=== PATIENT | male | born 1955 | race Caucasian/White ===

== ENCOUNTER 2021-04-27 14:28 | Inpatient (IN) | payer OTHER, MEDICARE ==
[~2021-04-27] VITALS: Ht 190.5 cm; Wt 97.7 kg
[~2021-04-27 14:28] MED LIST: LANTUS SQ; METF500T PO; SYN0.025T PO; VARE0.5T PO
[2021-04-27 15:05] LABS: EOSINOPHILS # (AUTO) 0.2 X10'3 (0-0.9); HEMOGLOBIN 17.3 g/dl (14.0-17.9); MONOCYTES # (AUTO) 0.7 X10'3 (0-0.9)
[2021-04-27 15:07] LABS: BASOPHILS # (AUTO) 0.1 X10'3 (0-0.2); BASOPHILS % (AUTO) 1.4 % (0-1); EOSINOPHILS % (AUTO) 2.4 % (0-6); HEMATOCRIT 49.1 % (42.0-52.0); LYMPHOCYTES % (AUTO) 24.9 % (21-51); MEAN CORPUSCULAR HEMOGLOBIN 32.1 PG (27.0-31.0); MEAN CORPUSCULAR HGB CONC 35.2 g/dL (33.0-36.5); MEAN CORPUSCULAR VOLUME 91.2 FL (78-98); MEAN PLATELET VOLUME 8.6 FL (7.4-10.4); MONOCYTES % (AUTO) 8.2 % (2-12); NEUTROPHILS # (AUTO) 5.1 X10'3 (1.8-7.7); NEUTROPHILS % (AUTO) 63.1 % (42-75); PLATELET COUNT 235 X10'3 (140-440); RED BLOOD COUNT 5.39 X10'6 (4.70-6.10); RED CELL DISTRIBUTION WIDTH 12.8 % (11.5-14.5); WHITE BLOOD COUNT 8.1 X10'3 (4.5-11.0)
[2021-04-27 15:19] LABS: ALANINE AMINOTRANSFERASE 52 U/L (12-78); ALBUMIN 3.9 G/DL (3.4-5.0); ALBUMIN/GLOBULIN RATIO 0.9 (1.1-1.5); ALKALINE PHOSPHATASE 84 IU/L (46-116); ANION GAP 8 (8-16); ASPARTATE AMINO TRANSFERASE 104 U/L (10-37); BILIRUBIN,TOTAL 0.5 MG/DL (0.1-1.0); BLOOD UREA NITROGEN 10 MG/DL (7-18); BUN/CREATININE RATIO 8.8 (5.4-32.0); CALCIUM 8.7 MG/DL (8.5-10.1); CHLORIDE 102 MMOL/L (99-107); CREATININE 1.14 MG/DL (0.60-1.10); GLUCOSE 230 MG/DL (70-104); POTASSIUM 4.4 MMOL/L (3.5-5.1); SODIUM 138 MMOL/L (135-145); TOTAL CARBON DIOXIDE 27.9 MMOL/L (24-32); TOTAL PROTEIN 8.4 G/DL (6.4-8.2); eGFR 64 ML/MIN
--- NOTE | 2021-04-27 15:59 | NUR ---
Dr. Treviño at bedside.patient denies pain at this time.
[2021-04-27] MEDS ORDERED: aspirin 81mg tab.chew PO ONE (16:15)
[2021-04-27] MEDS ORDERED: heparin 10,000 units/1 ML INJ IV ONE ×2 (16:15→16:20)
[2021-04-27] MEDS: heparin 25,000 UNIT/250ml bag 250 ML IV SCH (17:19)
[2021-04-27] MEDS ORDERED: magnesium 2GM in 50ml NS 50 ML IV PRN (17:20)
[2021-04-27] MEDS ORDERED: magnesium hydroxide 30ml (MOM) UD suspension PO PRN (17:20)
[2021-04-27] MEDS ORDERED: magnesium Cl slow-release 64mg tablet PO PRN (17:20)
[2021-04-27] MEDS ORDERED: mag hydrox/Alum hydrox/simeth 30ml oral suspension PO PRN (17:20)
[2021-04-27] MEDS ORDERED: MESSAGE TO PHARMACY PO ONE (17:20)
[2021-04-27] MEDS ORDERED: dextrose ORAL solution 15 GM/59 ML bottle PO PRN ×2 (17:20)
[2021-04-27] MEDS ORDERED: insulin Lispro (HumaLOG) vial - multi-dose SQ SCH (17:20)
[2021-04-27] MEDS ORDERED: morphine 2 MG/ML inj. syringe IV PRN ×2 (17:20)
[2021-04-27] MEDS ORDERED: nitroGLYCERIN 0.4mg SUBLingual tab SL PRN (17:20)
[2021-04-27] MEDS ORDERED: HYDROcodone/acetaminophen 10/325mg tab PO PRN (17:20)
[2021-04-27] MEDS ORDERED: glucagon, human recombinant 1mg kit SUBCUT PRN (17:20)
[2021-04-27] MEDS ORDERED: magnesium 4gm in 100ml NS 100 ML IV PRN (17:20)
[2021-04-27] MEDS ORDERED: potassium Cl 40MEQ/1/2NS 520ml 520 ML IV PRN ×2 (17:20)
[2021-04-27] MEDS ORDERED: HYDROcodone/acetaminophen 5mg/325mg tablet PO PRN (17:20)
[2021-04-27] MEDS ORDERED: bisacodyl 10mg suppository rectal RC PRN (17:20)
[2021-04-27] MEDS ORDERED: diphenhydrAMINE 25mg capsule PO PRN (17:20)
[2021-04-27] MEDS ORDERED: dextrose 50%-water 50ml dispensing syringe IV PRN ×2 (17:20)
[2021-04-27] MEDS ORDERED: potassium Cl 20 mEq SR tablet PO PRN ×2 (17:20)
[2021-04-27] MEDS ORDERED: acetaminophen 650mg rectal suppository RC PRN (17:20)
[2021-04-27] MEDS ORDERED: atorvastatin 20mg tablet PO SCH (17:20)
[2021-04-27] MEDS ORDERED: normal saline 1000ml 1,000 ML IV SCH (17:20)
[2021-04-27] MEDS ORDERED: acetaminophen 325mg tablet PO PRN ×2 (17:20)
[2021-04-27] MEDS ORDERED: ondansetron/PF 4mg/2ml inj IV PRN (17:20)
[2021-04-27 17:27] LABS: PARTIAL THROMBOPLASTIN TIME 26 SECONDS (22-32)
[2021-04-27] MEDS ORDERED: NERVE PILL (17:39)
[2021-04-27] MEDS ORDERED: HEART PILL (17:39)
[2021-04-27] MEDS ORDERED: INSU100V9 SQ (17:39)
[2021-04-27] MEDS ORDERED: LEVOTHYROXINE (17:39)
[2021-04-27] MEDS ORDERED: CHOLESTEROL (17:39)
[2021-04-27 17:48] LABS: HEMOGLOBIN A1C 8.4 % (4.5-6.2)
--- NOTE | 2021-04-27 18:30 | NUR ---
DR. ONEILL AT BEDSIDE,PATIENT TO HAVE HEART CATH TOMORROW.NPO AFTER MIDNIGHT.
[2021-04-27] MEDS ORDERED: ROSU40TA PO (19:19)
[2021-04-27] MEDS ORDERED: CARV3.12 PO (19:19)
[2021-04-27] MEDS ORDERED: ALOG25TA2 PO (19:19)
[2021-04-27] MEDS ORDERED: EMPA25TA PO (19:19)
[2021-04-27] MEDS ORDERED: LEVO100T PO (19:19)
[2021-04-27] MEDS ORDERED: GLIM1TAB PO (19:19)
[2021-04-27] MEDS ORDERED: docusate sod 100mg capsule PO SCH (20:00)
[2021-04-27] MEDS ORDERED: K and/or MAG REPLACEMENT MC SCH (20:00)
[2021-04-27] MEDS ORDERED: carVEDilol 3.125mg tablet PO SCH (20:00)
--- NOTE | 2021-04-27 20:39 | NUR ---
Patient in room PCU 3010. I have received report from KELLIE ANDERSEN and had the opportunity to ask questions and assume patient care.
[2021-04-27 20:42] VITALS: BP 115/74
[2021-04-27] MEDS ORDERED: insulin glargine (Lantus) pen - multi-dose SQ SCH (21:00)
[2021-04-27 22:00] VITALS: BP 115/73
[2021-04-28] MEDS: heparin 10,000 units/1 ML INJ IV PRN ×2 (00:30→00:40)
[2021-04-28] MEDS: heparin 25,000 UNIT/250ml bag 250 ML IV SCH (00:41)
[2021-04-28 02:00] VITALS: BP 114/70
[2021-04-28 03:20] LABS: ALANINE AMINOTRANSFERASE 45 U/L (12-78); ALBUMIN 3.5 G/DL (3.4-5.0); ALBUMIN/GLOBULIN RATIO 0.9 (1.1-1.5); ALKALINE PHOSPHATASE 74 IU/L (46-116); ANION GAP 9 (8-16); ASPARTATE AMINO TRANSFERASE 67 U/L (10-37); BILIRUBIN,TOTAL 0.6 MG/DL (0.1-1.0); BLOOD UREA NITROGEN 11 MG/DL (7-18); BUN/CREATININE RATIO 11.1 (5.4-32.0); CALCIUM 8.3 MG/DL (8.5-10.1); CHLORIDE 106 MMOL/L (99-107); CREATININE 0.99 MG/DL (0.60-1.10); GLUCOSE 196 MG/DL (70-104); POTASSIUM 3.9 MMOL/L (3.5-5.1); SODIUM 139 MMOL/L (135-145); TOTAL CARBON DIOXIDE 23.9 MMOL/L (24-32); TOTAL PROTEIN 7.6 G/DL (6.4-8.2); eGFR 75 ML/MIN
[2021-04-28 03:22] LABS: CHOL/HDL RATIO 5.1 (0.00-4.99); CHOLESTEROL 193 MG/DL (0-200); HDL CHOLESTEROL 38 MG/DL (35-60); LDL CHOLESTEROL 108 MG/DL (50-100); MAGNESIUM 2.2 MG/DL (1.5-2.4); PHOSPHORUS 2.8 MG/DL (2.3-4.5); TRIGLYCERIDES 145 MG/DL (20-135)
[2021-04-28 03:23] LABS: BASOPHILS # (AUTO) 0.1 X10'3 (0-0.2); BASOPHILS % (AUTO) 1.1 % (0-1); EOSINOPHILS # (AUTO) 0.3 X10'3 (0-0.9); EOSINOPHILS % (AUTO) 4.2 % (0-6); HEMATOCRIT 47.2 % (42.0-52.0); HEMOGLOBIN 16.5 g/dl (14.0-17.9); LYMPHOCYTES # (AUTO) 3.1 X10'3 (1.1-4.8); LYMPHOCYTES % (AUTO) 40.2 % (21-51); MEAN CORPUSCULAR HEMOGLOBIN 31.7 PG (27.0-31.0); MEAN CORPUSCULAR HGB CONC 34.9 g/dL (33.0-36.5); MEAN PLATELET VOLUME 9.2 FL (7.4-10.4); MONOCYTES # (AUTO) 0.7 X10'3 (0-0.9); MONOCYTES % (AUTO) 8.8 % (2-12); NEUTROPHILS # (AUTO) 3.5 X10'3 (1.8-7.7); NEUTROPHILS % (AUTO) 45.7 % (42-75); PLATELET COUNT 188 X10'3 (140-440); RED BLOOD COUNT 5.18 X10'6 (4.70-6.10); RED CELL DISTRIBUTION WIDTH 12.8 % (11.5-14.5); WHITE BLOOD COUNT 7.7 X10'3 (4.5-11.0)
--- NOTE | 2021-04-28 06:32 | NUR ---
Problems reprioritized. Patient report given, questions answered & plan of care reviewed with PAT RN.
[2021-04-28 07:08] VITALS: BP 103/56
[2021-04-28] MEDS ORDERED: levoTHYROXINE 100mcg tablet PO SCH (08:00)
[2021-04-28] MEDS ORDERED: carVEDilol 3.125mg tablet PO SCH (08:00)
[2021-04-28] MEDS ORDERED: lisinopril 10 MG tablet PO SCH (08:00)
[2021-04-28] MEDS ORDERED: aspirin 81mg, enteric-coated 1 TAB TABLET.DR PO SCH (08:00)
[2021-04-28] MEDS ORDERED: midazolam 1 mg/ML 2ml injection ONE (09:40)
[2021-04-28] MEDS ORDERED: fentaNYL/PF 50MCG/1 ML 2ML syringe ONE (09:40)
[2021-04-28] MEDS ORDERED: LIDOcaine 1% (10mg/ml)w/preservative injection 20ml MDV ONE (09:40)
[2021-04-28] MEDS ORDERED: iohexol 350 MG/ML 50ML vial IV ONE ×2 (09:40→10:52)
[2021-04-28] MEDS ORDERED: iohexol 350MG/ML 100ml bottle IV ONE (09:42)
--- NOTE | 2021-04-28 10:31 | NUR ---
Noted pt with T2DM, current A1c 8.4%. Pt admit for NSTEMI, currently in labor and delivery registered nurse per EMR. Pt would benefit from DM education once stable. Will continue to follow. Addendum: 04/28/21 at [address] Amended: Links added.
[2021-04-28] MEDS ORDERED: proCHLORperazine 10 MG/2 ml inj IV PRN (12:40)
[2021-04-28] MEDS ORDERED: HYDROcodone/acetaminophen 5mg/325mg tablet PO PRN (12:40)
[2021-04-28] MEDS ORDERED: HYDROcodone/acetaminophen 10/325mg tab PO PRN (12:40)
[2021-04-28] MEDS ORDERED: OXAZEpam 15mg capsule PO PRN (12:40)
[2021-04-28] MEDS ORDERED: normal saline 1000ml 1,000 ML IV ONE (12:40)
[2021-04-28] MEDS ORDERED: LISI10TA27 PO (13:01)
[2021-04-28] MEDS ORDERED: ASPI-1071 PO (13:01)
[2021-04-28] MEDS ORDERED: CLOP75TA15 PO (13:01)
[2021-04-29] MEDS ORDERED: clopidogrel 75mg tablet PO SCH (08:00)
== END 2021-04-28 18:30 | disposition home or self-care (01) | DRG 282 ==
LOC: ER 14:29 → ED HOLD 17:24 → MERGE 17:24 → EDBEDREQ 19:01 → PCU 3S 20:34
PROVIDERS: ADMIT Family Medicine; ATTEND Family Medicine
PROC: 4A023N7 Measurement of Cardiac Sampling and Pressure, Left Heart, Percutaneous Approach (ICD-10-PCS; principal; 2021-04-28)
PROC: B2111ZZ Fluoroscopy of Multiple Coronary Arteries using Low Osmolar Contrast (ICD-10-PCS; 2021-04-28)
PROC: B2151ZZ Fluoroscopy of Left Heart using Low Osmolar Contrast (ICD-10-PCS; 2021-04-28)
PROC: B31N1ZZ Fluoroscopy of Other Upper Arteries using Low Osmolar Contrast (ICD-10-PCS; 2021-04-28)
DX: I21.4 Non-ST elevation (NSTEMI) myocardial infarction (principal); E03.9 Hypothyroidism, unspecified; E11.9 Type 2 diabetes mellitus without complications; E78.5 Hyperlipidemia, unspecified; F17.210 Nicotine dependence, cigarettes, uncomplicated; Z60.2 Problems related to living alone; E78.00 Pure hypercholesterolemia, unspecified; M54.9 Dorsalgia, unspecified; F41.9 Anxiety disorder, unspecified; I10 Essential (primary) hypertension; Z79.02 Long term (current) use of antithrombotics/antiplatelets; Z79.4 Long term (current) use of insulin; Z79.899 Other long term (current) drug therapy; Z79.84 Long term (current) use of oral hypoglycemic drugs; Z90.49 Acquired absence of other specified parts of digestive tract; Z71.6 Tobacco abuse counseling
CPT/HCPCS: 36415; 71045; 80053; 80061; 82948; 83036; 83735; 84100; 84484; 85025; 85347; 85610; 85730; 87081; 93005; 93306; 93459; 96374; 99152; 99153; 99285; A4620; A6258; C1760; C1769; G0378; J1644; J1815; J2001; J2250; J3010; J7030; Q9967

== ENCOUNTER 2021-05-04 10:00 | Inpatient (IN) | payer OTHER, MEDICARE ==
[2021-05-04] VITALS (7 sets, daily range): BP systolic 105–122; BP diastolic 60–71
[~2021-05-04] VITALS: Ht 190.5 cm; Wt 97.7 kg
[~2021-05-04 10:00] MED LIST changes: +ALOG25TA2 PO; +ASPI-1071 PO; +CARV3.12 PO; +CHOLESTEROL; +CLOP75TA15 PO; +EMPA25TA PO; +GLIM1TAB PO; +HEART PILL; +INSU100V9 SQ; +LEVO100T PO; +LEVOTHYROXINE; +LISI10TA27 PO; +NERVE PILL; +ROSU40TA PO
[2021-05-04 10:57] LABS: BASOPHILS # (AUTO) 0.1 X10'3 (0-0.2); BASOPHILS % (AUTO) 1.9 % (0-1); EOSINOPHILS # (AUTO) 0.3 X10'3 (0-0.9); EOSINOPHILS % (AUTO) 4.5 % (0-6); HEMOGLOBIN 16.5 g/dl (14.0-17.9); LYMPHOCYTES # (AUTO) 1.5 X10'3 (1.1-4.8); LYMPHOCYTES % (AUTO) 24.4 % (21-51); MEAN CORPUSCULAR HEMOGLOBIN 31.9 PG (27.0-31.0); MEAN CORPUSCULAR HGB CONC 35.1 g/dL (33.0-36.5); MEAN CORPUSCULAR VOLUME 90.8 FL (78-98); MEAN PLATELET VOLUME 8.4 FL (7.4-10.4); MONOCYTES # (AUTO) 0.6 X10'3 (0-0.9); MONOCYTES % (AUTO) 9.9 % (2-12); NEUTROPHILS # (AUTO) 3.5 X10'3 (1.8-7.7); NEUTROPHILS % (AUTO) 59.3 % (42-75); PLATELET COUNT 254 X10'3 (140-440); RED BLOOD COUNT 5.18 X10'6 (4.70-6.10); RED CELL DISTRIBUTION WIDTH 12.8 % (11.5-14.5)
[2021-05-04 11:12] LABS: ALANINE AMINOTRANSFERASE 39 U/L (12-78); ALBUMIN/GLOBULIN RATIO 0.9 (1.1-1.5); ALKALINE PHOSPHATASE 79 IU/L (46-116); ANION GAP 7 (8-16); ASPARTATE AMINO TRANSFERASE 24 U/L (10-37); BILIRUBIN,TOTAL 0.8 MG/DL (0.1-1.0); BLOOD UREA NITROGEN 21 MG/DL (7-18); BUN/CREATININE RATIO 17.6 (5.4-32.0); CALCIUM 8.8 MG/DL (8.5-10.1); CHLORIDE 101 MMOL/L (99-107); CREATININE 1.19 MG/DL (0.60-1.10); GLUCOSE 219 MG/DL (70-104); POTASSIUM 4.7 MMOL/L (3.5-5.1); SODIUM 135 MMOL/L (135-145); TOTAL CARBON DIOXIDE 26.9 MMOL/L (24-32); TOTAL PROTEIN 8.4 G/DL (6.4-8.2); eGFR 61 ML/MIN
[2021-05-04] MEDS ORDERED: heparin 10,000 units/1 ML INJ IV ONE (11:25)
[2021-05-04] MEDS ORDERED: heparin 10,000 units/1 ML INJ IV PRN (11:25)
[2021-05-04] MEDS ORDERED: heparin 25,000 UNIT/250ml bag 250 ML IV SCH (11:25)
[2021-05-04] MEDS ORDERED: magnesium 4gm in 100ml NS 100 ML IV PRN (14:10)
[2021-05-04] MEDS ORDERED: acetaminophen 650mg rectal suppository RC PRN (14:10)
[2021-05-04] MEDS ORDERED: acetaminophen 325mg tablet PO PRN ×2 (14:10)
[2021-05-04] MEDS ORDERED: potassium Cl 40MEQ/1/2NS 520ml 520 ML IV PRN ×2 (14:10)
[2021-05-04] MEDS ORDERED: magnesium 2GM in 50ml NS 50 ML IV PRN (14:10)
[2021-05-04] MEDS ORDERED: potassium Cl 20 mEq SR tablet PO PRN ×2 (14:10)
[2021-05-04] MEDS ORDERED: bisacodyl 10mg suppository rectal RC PRN (14:10)
[2021-05-04] MEDS ORDERED: morphine 2 MG/ML inj. syringe IV PRN ×2 (14:10)
[2021-05-04] MEDS ORDERED: HYDROcodone/acetaminophen 10/325mg tab PO PRN (14:10)
[2021-05-04] MEDS ORDERED: ondansetron/PF 4mg/2ml inj IV PRN (14:10)
[2021-05-04] MEDS ORDERED: mag hydrox/Alum hydrox/simeth 30ml oral suspension PO PRN (14:10)
[2021-05-04] MEDS ORDERED: magnesium Cl slow-release 64mg tablet PO PRN (14:10)
[2021-05-04] MEDS ORDERED: HYDROcodone/acetaminophen 5mg/325mg tablet PO PRN (14:10)
[2021-05-04] MEDS ORDERED: magnesium hydroxide 30ml (MOM) UD suspension PO PRN (14:10)
[2021-05-04] MEDS ORDERED: NITR0.4T51 SL (15:52)
[2021-05-04] MEDS: normal saline 1000ml 1,000 ML IV SCH (16:31)
[2021-05-04] MEDS ORDERED: nitroGLYCERIN-Tridil 50MG/D5W 250 ML IV ONE (16:52)
[2021-05-04] MEDS ORDERED: verapamil 2.5 mg/ml inj IV ONE (16:52)
[2021-05-04] MEDS ORDERED: midazolam 1 mg/ML 2ml injection ONE (16:53)
[2021-05-04] MEDS ORDERED: iohexol 350 MG/ML 50ML vial IV ONE (16:53)
[2021-05-04] MEDS ORDERED: fentaNYL/PF 50MCG/1 ML 2ML syringe ONE (16:53)
[2021-05-04] MEDS ORDERED: iohexol 350 MG/1 ML 200ml bottle ONE (16:53)
[2021-05-04] MEDS ORDERED: LIDOcaine 1% (10mg/ml)w/preservative injection 20ml MDV ONE (16:53)
[2021-05-04] MEDS ORDERED: heparin 1,000unit/ml 10ml vial 10 ML ONE (16:53)
[2021-05-04] MEDS ORDERED: diphenhydrAMINE 50 mg/ml inj ONE (16:56)
[2021-05-04] MEDS ORDERED: clopidogrel 300mg tablet ONE (17:45)
[2021-05-04] MEDS ORDERED: nitroGLYCERIN 0.4mg SUBLingual tab SL PRN (17:55)
[2021-05-04] MEDS ORDERED: clopidogrel 75mg tablet ONE ×2 (18:12→18:13)
--- NOTE | 2021-05-04 18:25 | NUR ---
I have received report from Humza ANDERSEN in pit lab[employer] and had the opportunity to ask questions and assume patient care.
--- NOTE | 2021-05-04 18:30 | NUR ---
Patient arrived to the floor at this time, in no apparent distress. Heparin running, all personal belongings were put in patients assigned closet. Will continue to monitor per hospital policy.
[2021-05-04] MEDS: K and/or MAG REPLACEMENT MC SCH (20:00)
[2021-05-04] MEDS: insulin glargine (Lantus) pen - multi-dose SQ SCH (20:00)
[2021-05-04] MEDS ORDERED: temazepam 15mg capsule PO PRN (21:00)
[2021-05-04] MEDS: docusate sod 100mg capsule PO SCH (22:06)
[2021-05-04] MEDS: carVEDilol 3.125mg tablet PO SCH (22:07)
[2021-05-05] MEDS: normal saline 1000ml 1,000 ML IV SCH ×3 (00:12→20:26)
[2021-05-05 02:00] VITALS: BP 103/68
[2021-05-05 06:00] VITALS: BP 117/70
[2021-05-05 07:06] LABS: BASOPHILS # (AUTO) 0.1 X10'3 (0-0.2); BASOPHILS % (AUTO) 1.2 % (0-1); EOSINOPHILS # (AUTO) 0.2 X10'3 (0-0.9); HEMATOCRIT 42.3 % (42.0-52.0); HEMOGLOBIN 14.8 g/dl (14.0-17.9); LYMPHOCYTES # (AUTO) 1.5 X10'3 (1.1-4.8); LYMPHOCYTES % (AUTO) 19.9 % (21-51); MEAN CORPUSCULAR HEMOGLOBIN 31.9 PG (27.0-31.0); MEAN CORPUSCULAR HGB CONC 35.1 g/dL (33.0-36.5); MEAN CORPUSCULAR VOLUME 90.9 FL (78-98); MEAN PLATELET VOLUME 8.3 FL (7.4-10.4); MONOCYTES # (AUTO) 0.8 X10'3 (0-0.9); MONOCYTES % (AUTO) 10.6 % (2-12); NEUTROPHILS # (AUTO) 4.8 X10'3 (1.8-7.7); NEUTROPHILS % (AUTO) 65.3 % (42-75); PLATELET COUNT 216 X10'3 (140-440); RED BLOOD COUNT 4.65 X10'6 (4.70-6.10); RED CELL DISTRIBUTION WIDTH 13.2 % (11.5-14.5); WHITE BLOOD COUNT 7.3 X10'3 (4.5-11.0)
--- NOTE | 2021-05-05 07:06 | NUR ---
Problems reprioritized. Patient report given, questions answered & plan of care reviewed with ALLYSSA ANDERSEN.
[2021-05-05 07:22] LABS: ALANINE AMINOTRANSFERASE 29 U/L (12-78); ALBUMIN 3.3 G/DL (3.4-5.0); ALBUMIN/GLOBULIN RATIO 0.9 (1.1-1.5); ALKALINE PHOSPHATASE 67 IU/L (46-116); ANION GAP 9 (8-16); ASPARTATE AMINO TRANSFERASE 31 U/L (10-37); BILIRUBIN,TOTAL 0.4 MG/DL (0.1-1.0); BLOOD UREA NITROGEN 20 MG/DL (7-18); BUN/CREATININE RATIO 19.2 (5.4-32.0); CALCIUM 8.1 MG/DL (8.5-10.1); CHLORIDE 104 MMOL/L (99-107); CHOL/HDL RATIO 5.5 (0.00-4.99); CHOLESTEROL 154 MG/DL (0-200); CREATININE 1.04 MG/DL (0.60-1.10); GLUCOSE 205 MG/DL (70-104); HDL CHOLESTEROL 28 MG/DL (35-60); LDL CHOLESTEROL 76 MG/DL (50-100); MAGNESIUM 2.3 MG/DL (1.5-2.4); SODIUM 138 MMOL/L (135-145); TOTAL CARBON DIOXIDE 24.6 MMOL/L (24-32); TRIGLYCERIDES 367 MG/DL (20-135); eGFR 71 ML/MIN
[2021-05-05] MEDS: K and/or MAG REPLACEMENT MC SCH ×2 (08:00→20:00)
[2021-05-05] MEDS ORDERED: EMPAGLIFLOZIN 12.5 MG PO SCH (08:00)
[2021-05-05] MEDS: docusate sod 100mg capsule PO SCH ×2 (08:00→20:26)
--- NOTE | 2021-05-05 08:21 | NUR ---
PAGER ID: [phone] MESSAGE: [phone] [address] Li- Troponin [id number]. [place] [phone]
[2021-05-05] MEDS: atorvastatin 20mg tablet PO SCH (08:43)
[2021-05-05] MEDS: linagliptin 5mg tablet PO SCH (08:43)
[2021-05-05] MEDS: levoTHYROXINE 100mcg tablet PO SCH (08:43)
[2021-05-05] MEDS: carVEDilol 3.125mg tablet PO SCH ×2 (08:44→20:26)
[2021-05-05] MEDS: clopidogrel 75mg tablet PO SCH (08:44)
[2021-05-05] MEDS: lisinopril 10 MG tablet PO SCH (08:44)
[2021-05-05] MEDS: aspirin 81mg, enteric-coated 1 TAB TABLET.DR PO SCH (08:45)
[2021-05-05] MEDS: insulin glargine (Lantus) pen - multi-dose SQ SCH ×2 (09:03→20:21)
[2021-05-05 10:00] VITALS: BP 108/66
--- NOTE | 2021-05-05 12:39 | NUR ---
PAGER ID: [phone] MESSAGE: [phone] TROP WENT FROM 1697 THIS A.M TO 2480 NOW. MARTINA LITTLE
[2021-05-05 15:00] VITALS: BP 104/63
[2021-05-05 18:00] VITALS: BP 101/62
--- NOTE | 2021-05-05 18:22 | NUR ---
Problems reprioritized. Patient report given, questions answered & plan of care reviewed with Prudence RN.
--- NOTE | 2021-05-05 18:36 | NUR ---
Patient in room PCU 3011. I have received report from CANDI ANDERSEN RN and had the opportunity to ask questions and assume patient care.
[2021-05-05 22:00] VITALS: BP 103/64
[2021-05-06 02:00] VITALS: BP 92/55
[2021-05-06] MEDS: normal saline 1000ml 1,000 ML IV SCH (06:10)
--- NOTE | 2021-05-06 06:27 | NUR ---
Problems reprioritized. Patient report given, questions answered & plan of care reviewed with SIDDHARTH ANDERSEN.
--- NOTE | 2021-05-06 06:39 | NUR ---
Patient in room PCU 3011. I have received report from GANESH CASTANEDA and had the opportunity to ask questions and assume patient care.
[2021-05-06 07:00] VITALS: BP 109/64
[2021-05-06 07:35] LABS: HEMATOCRIT 44.2 % (42.0-52.0); HEMOGLOBIN 15.4 g/dl (14.0-17.9); MEAN CORPUSCULAR HEMOGLOBIN 32.1 PG (27.0-31.0); MEAN CORPUSCULAR HGB CONC 34.9 g/dL (33.0-36.5); MEAN CORPUSCULAR VOLUME 91.9 FL (78-98); MEAN PLATELET VOLUME 8.6 FL (7.4-10.4); PLATELET COUNT 239 X10'3 (140-440); RED BLOOD COUNT 4.81 X10'6 (4.70-6.10); RED CELL DISTRIBUTION WIDTH 13.5 % (11.5-14.5); WHITE BLOOD COUNT 7.8 X10'3 (4.5-11.0)
[2021-05-06 07:39] LABS: ALBUMIN 3.6 G/DL (3.4-5.0); ANION GAP 8 (8-16); BLOOD UREA NITROGEN 14 MG/DL (7-18); BUN/CREATININE RATIO 14.1 (5.4-32.0); CALCIUM 8.4 MG/DL (8.5-10.1); CHLORIDE 106 MMOL/L (99-107); CREATININE 0.99 MG/DL (0.60-1.10); GLUCOSE 131 MG/DL (70-104); MAGNESIUM 2.4 MG/DL (1.5-2.4); POTASSIUM 4.2 MMOL/L (3.5-5.1); SODIUM 140 MMOL/L (135-145); TOTAL CARBON DIOXIDE 26.5 MMOL/L (24-32); eGFR 75 ML/MIN
[2021-05-06 10:00] VITALS: BP 120/72
[2021-05-06] MEDS: linagliptin 5mg tablet PO SCH (10:27)
[2021-05-06 10:28] VITALS: BP_SYST 120
[2021-05-06] MEDS: lisinopril 10 MG tablet PO SCH (10:28)
[2021-05-06] MEDS: carVEDilol 3.125mg tablet PO SCH (10:28)
[2021-05-06] MEDS: atorvastatin 20mg tablet PO SCH (10:29)
[2021-05-06] MEDS: aspirin 81mg, enteric-coated 1 TAB TABLET.DR PO SCH (10:33)
[2021-05-06] MEDS: clopidogrel 75mg tablet PO SCH (10:34)
[2021-05-06] MEDS: levoTHYROXINE 100mcg tablet PO SCH (10:34)
[2021-05-06] MEDS: insulin glargine (Lantus) pen - multi-dose SQ SCH (10:38)
--- NOTE | 2021-05-06 12:23 | NUR ---
PATIENT STABLE AND APPROPRIATE FOR DISCHARGE, IV TAKEN OUT, TELE REMOVED, EDUCATION GIVEN, ALL BELONGINGS SENT WITH PATIENT, PATIENT WALKED DOWN TO [facility] WHERE PATIENT WILL DRIVE SELF HOME
== END 2021-05-06 12:23 | disposition home or self-care (01) | DRG 247 ==
LOC: ER 10:02 → ED HOLD 14:10 → PCU 3S 18:21
PROVIDERS: ADMIT Family Medicine; ATTEND Family Medicine
PROC: 4A023N7 Measurement of Cardiac Sampling and Pressure, Left Heart, Percutaneous Approach (ICD-10-PCS; principal; 2021-05-04)
PROC: 027135Z Dilation of Coronary Artery, Two Arteries with Two Drug-eluting Intraluminal Devices, Percutaneous Approach (ICD-10-PCS; 2021-05-04)
PROC: B2111ZZ Fluoroscopy of Multiple Coronary Arteries using Low Osmolar Contrast (ICD-10-PCS; 2021-05-04)
PROC: B2151ZZ Fluoroscopy of Left Heart using Low Osmolar Contrast (ICD-10-PCS; 2021-05-04)
DX: I21.4 Non-ST elevation (NSTEMI) myocardial infarction (principal); F17.210 Nicotine dependence, cigarettes, uncomplicated; E11.9 Type 2 diabetes mellitus without complications; E03.9 Hypothyroidism, unspecified; Z20.822 Contact with and (suspected) exposure to COVID-19; E78.5 Hyperlipidemia, unspecified; I10 Essential (primary) hypertension; I25.10 Atherosclerotic heart disease of native coronary artery without angina pectoris; I25.2 Old myocardial infarction; Z79.899 Other long term (current) drug therapy; Z82.49 Family history of ischemic heart disease and other diseases of the circulatory system; Z90.49 Acquired absence of other specified parts of digestive tract; Z71.6 Tobacco abuse counseling; Z79.4 Long term (current) use of insulin; Z79.02 Long term (current) use of antithrombotics/antiplatelets
CPT/HCPCS: 93458; 99285; C9600; C9601; 36415; 71045; 76937; 80048; 80053; 80061; 82948; 83735; 83880; 84484; 85025; 85027; 85347; 87081; 87635; 93005; 99152; 99153; A4620; A5120; A6258; C1725; C1751; C1760; C1769; C1874; C1894; G0378; J1200; J1644; J1815; J2001; J2250; J3010; J3490; J7030; Q9967